=== PATIENT | female | born 1980 | race Caucasian/White ===

== ENCOUNTER 2018-03-22 04:56 | Day surgery (SDC) | payer OTHER ==
[~2018-03-22] VITALS: Ht 170.2 cm; Wt 94.8 kg
[2018-03-22] MEDS ORDERED: LISI10TA11 PO (07:01)
[2018-03-22] MEDS ORDERED: AMLO5TAB PO (07:01)
[2018-03-22] MEDS ORDERED: SEVOFLURANE 250 ML BTL INH ONE (07:15)
[2018-03-22] MEDS ORDERED: ONDANSETRON 4 MG/2 ML VIAL ONE (07:15)
[2018-03-22] MEDS ORDERED: PROPOFOL 200 MG/20 ML VIAL IV ONE (07:15)
[2018-03-22] MEDS ORDERED: DEXAMETHASONE 4 MG/ML VIAL ONE (07:15)
[2018-03-22] MEDS ORDERED: MIDAZOLAM 2 MG/2 ML VIAL ONE (07:33)
[2018-03-22] MEDS ORDERED: fentaNYL 0.05 MG/ML VIAL ONE (07:34)
[2018-03-22] MEDS ORDERED: MEPERIDINE 50 MG/ML SYR ONE (07:34)
[2018-03-22] MEDS ORDERED: MORPHINE SULFATE 4 MG/ML SYR IM/IVP PRN (07:40)
[2018-03-22] MEDS ORDERED: ACETAMINOPHEN/CODEINE 300/30MG 1 TAB PO PRN (07:40)
[2018-03-22] MEDS ORDERED: IBUPROFEN 800 MG TAB PO PRN (07:40)
[2018-03-22] MEDS ORDERED: ONDANSETRON 4 MG/2 ML VIAL IVP PRN ×2 (07:40→07:50)
[2018-03-22] MEDS ORDERED: LACTATED RINGERS 1,000 ML IV SCH (07:49)
[2018-03-22] MEDS ORDERED: diphenhydrAMINE 50 MG/ML VIAL IVP PRN (07:50)
[2018-03-22] MEDS ORDERED: HYDROmorphone 1 MG/ML AMP IVP PRN (07:50)
[2018-03-22] MEDS ORDERED: MEPERIDINE 25 MG/ML SYR IVP PRN (07:50)
[2018-03-22] MEDS ORDERED: MEPERIDINE 25 MG/ML SYR ONE (08:20)
== END 2018-03-22 09:50 | disposition home or self-care (01) ==
LOC: MOR 04:56 → MMU 06:01 → MOR 09:50
PROVIDERS: ATTEND Obstetrics & Gynecology
DX: N75.1 Abscess of Bartholin's gland (principal); I10 Essential (primary) hypertension; E66.9 Obesity, unspecified; M19.90 Unspecified osteoarthritis, unspecified site; Z79.899 Other long term (current) drug therapy; Z68.32 Body mass index [BMI] 32.0-32.9, adult; Z98.890 Other specified postprocedural states
CPT/HCPCS: 56440; 87070; 87075; 87205; 88304; J1100; J2175; J2250; J2405; J2704; J3010; J7030

== ENCOUNTER 2020-01-19 11:12 | Emergency (ER) | payer SELFPAY ==
[~2020-01-19] VITALS: Ht 167.6 cm; Wt 92.5 kg
[~2020-01-19 11:12] MED LIST: AMLO5TAB PO; LISI10TA11 PO
[2020-01-19 11:15] VITALS: BP 135/77
--- NOTE | 2020-01-19 11:20 | NUR ---
PT AMBULATED TO ER BED 04
--- NOTE | 2020-01-19 11:25 | NUR ---
PT C/O PALPATABLE VAGINAL "BULGE," FREQUENCY, URGENCY, AND BURNING SENSATION FOR 5 DAYS. PT REPORTS SHE HAD A VAGINAL "BULGE" AND GOT REMOVAL ONE YEAR AGO IN OUR [facility]. DENIES HEMATURIA, DSYRUIA, LOWER BACK PAIN, OR SUPRAPUBIC PAIN. PT DENIES ANY FEVER, CP, SOB, OR COUGH AT THIS TIME; PATIENT STATES PAIN OF 8/10 AT THIS TIME; VSS; PATIENT POSITIONED FOR COMFORT; HOB ELEVATED; BEDRAILS UP X1; BED DOWN. ER MD MADE AWARE OF PT STATUS.
--- NOTE | 2020-01-19 11:38 | NUR ---
PHYSICIAN AT BEDSIDE
[2020-01-19] MEDS ORDERED: CEPHALEXIN 500 MG CAP PO ONE (11:45)
[2020-01-19] MEDS ORDERED: ACETAMINOPHEN EXTRA STRENGTH 500 MG TAB PO ONE (11:45)
[2020-01-19] MEDS ORDERED: IBUPROFEN 400 MG TAB PO ONE (11:45)
--- NOTE | 2020-01-19 14:10 | NUR ---
PT IS RESTING IN THE BED WITH VSS.
[2020-01-19] MEDS ORDERED: LIDOCAINE/EPI 1% 1:100000 20 ML VIAL INJ ONE (15:23)
[2020-01-19] MEDS ORDERED: LIDOCAINE MPF 1% 10 MG/ML VIAL INJ ONE (15:25)
--- NOTE | 2020-01-19 15:42 | NUR ---
ASSISTED DR. LAMB DURING THE WHOLE PROCEDURE OF I&D.
[2020-01-19 15:51] VITALS: BP 112/71
--- NOTE | 2020-01-19 15:51 | NUR ---
Patient discharged with v/s stable. Written and verbal after care instructions given and explained. Patient alert, oriented and verbalized understanding of instructions. Ambulatory with steady gait. All questions addressed prior to discharge. ID band removed. Patient advised to follow up with [facility] [employer] [facility] Dr. Hartmann. Rx of [place], Bactrim, and Keflex given. Patient educated on indication of medication including possible reaction and side effects. Opportunity to ask questions provided and answered.
== END 2020-01-19 15:51 | disposition home or self-care (01) ==
LOC: MED 11:12
DX: N75.0 Cyst of Bartholin's gland (principal); I10 Essential (primary) hypertension; N39.0 Urinary tract infection, site not specified; Z79.899 Other long term (current) drug therapy; Z98.890 Other specified postprocedural states
CPT/HCPCS: 56420; 81002; 81025; 99284; J2001